=== PATIENT | male | born 1960 | race Caucasian/White ===

== ENCOUNTER 2019-08-08 07:22 | Outpatient (CLI) | payer OTHER, SELFPAY ==
[2019-08-08 08:23] LABS: Basophils # 0.1 10^3/uL (0.0-0.1); Eosinophils # 0.2 10^3/uL (0.0-0.8); Eosinophils % 3.1 %; Hematocrit 43.9 % (42.0-52.0); Hemoglobin 14.2 g/dL (11.7-16.6); Lymphocytes # 2.6 10^3/uL (0.8-4.8); Lymphocytes % 36.3 %; Mean Corpuscular HGB Conc 32.3 g/dL (30.0-36.0); Mean Corpuscular Volume 83.5 fL (80-94); Mean Platelet Volume 9.4 fL (7.4-10.4); Monocytes # 0.7 10^3/uL (0.2-0.9); Monocytes % 9.3 %; Neutrophils # 3.6 10^3/uL (1.8-7.7); Neutrophils % 49.9 %; Nucleated Red Blood Cells % 0 %; Platelet Count 279 10^3/cmm (130-400); Red Blood Count 5.26 10^6/uL (4.1-5.3); Red Cell Distribution Width 13.2 % (12.1-15.1); White Blood Count 7.2 10^3/uL (4.0-10.0)
--- NOTE | 2019-08-08 08:45 | USCV_ITS ---
Tan Garnica Age: 59 Gender: M : 1960 Exam Date: 08/08/2019 07:40 Ordering Phys: Josee Kinney MD ([email or web address]) Technologist: Josselin Lynn Exam Location: [facility] [place] Indication: CHF BP: / HR: 64 Rhythm: Sinus Technical Quality: Adequate MEASUREMENTS (Male / Female) Normal Values 2D ECHO LV Diastolic Diameter PLAX 4.9 cm 4.2 - 5.9 / 3.9 - 5.3 cm LV Systolic Diameter PLAX 3.8 cm LV Chamber Size 4.0 cm IVS Diastolic Thickness 1.6 cm 0.6 - 1.0 / 0.6 - 0.9 cm IVS Systolic Thickness 1.8 cm LVPW Diastolic Thickness 1.4 cm 0.6 - 1.0 / 0.6 - 0.9 cm LVPW Systolic Thickness 1.7 cm RV Chamber Size 2.4 cm LV Ejection Fraction 2D Teich 46.1 % LV Ejection Fraction MOD 2C 45.0 % LV Ejection Fraction 2C AL 46.0 % LA Diameter 4.3 cm LA Width 2.8 cm LA Height 4.4 cm RA Width 3.4 cm RA Height 4.2 cm M-MODE LV Diastolic Diameter MM 3.2 cm 4.2 - 5.9 / 3.9 - 5.3 cm LV Systolic Diameter MM 1.9 cm LV Ejection Fraction MM Teich 70.6 % IVS Diastolic Thickness MM 1.3 cm 0.6 - 1.0 / 0.6 - 0.9 cm IVS Systolic Thickness MM 1.3 cm LVPW Diastolic Thickness MM 1.2 cm 0.6 - 1.0 / 0.6 - 0.9 cm LVPW Systolic Thickness MM 1.6 cm RV Diastolic Diameter MM 1.9 cm Aortic Annulus Diameter 3.8 cm LA Ao Ratio MM 1.1 MV E Point Septal Separation 0.6 cm DOPPLER AV Peak Velocity 109.0 cm/s LVOT Peak Velocity 57.0 cm/s MV Area PHT 4.3 cm squared Mitral E to A Ratio 1.1 MV E' Velocity 11.0 cm/s Mitral E to MV E' Ratio 7.9 Mitral E to LV E' Lateral Ratio 6.5 Mitral E to LV E' Septal Ratio 10.1 TR Peak Velocity 251.3 cm/s TR Peak Gradient 25.3 mmHg TR Mean Velocity 197.4 cm/s TR Mean Gradient 17.2 mmHg TR Velocity Time Integral 96.2 cm TV Peak E Velocity 35.0 cm/s Right Atrial Pressure 3.0 mmHg Pulmonary Artery Systolic Pressu 28.3 mmHg PV Peak Velocity 59.0 cm/s RV Acceleration Time 0.1 s RV Ejection Time 0.4 s RV AcT/ET 0.3 FINDINGS Left Ventricle Normal left ventricular cavity size. Mildly decreased left ventricular systolic function. Left ventricular ejection fraction is estimated at 45 %. Probable mild hypokinesis of basal to mid inferolateral and inferior luke. Normal diastolic function. Right Ventricle Normal right ventricular size and systolic function. Right ventricular systolic pressure 28.3 mmHg. Right Atrium Normal right atrial size. Right atrial pressure estimated at 3 mmHg. Left Atrium Normal left atrial size. Mitral Valve Mildly thickened mitral valve. No mitral valve stenosis. Trace- mild mitral valve regurgitation. Aortic Valve Structurally normal trileaflet aortic valve. No aortic valve stenosis. No aortic valve regurgitation. Tricuspid Valve Tricuspid valve not well visualized. Trace tricuspid valve regurgitation. Pulmonic Valve Pulmonic valve not well visualized. No significant pulmonary valve regurgitation. Pericardium No pericardial effusion. Aorta Aorta not well visualized. CONCLUSIONS 1. Normal left ventricular cavity size. Mildly decreased left ventricular systolic function. Left ventricular ejection fraction is estimated at 45 %. Probable mild hypokinesis of basal to mid inferolateral and inferior luke. Normal diastolic function. 2. Normal right ventricular size and systolic function. 3. Pulmonary artery pressure estimated at 28 mmHg. 4. Trace-mild mitral valve regurgitation. 5. No prior similar studies to compare. Josee Kinney MD (Electronically Signed) Final Date: 08 August 2019 16:22 S
[2019-08-08 08:49] LABS: Alanine Aminotransferase 17 U/L (0-41); Albumin Level 4.1 g/dL (3.5-5.2); Alkaline Phosphatase 64 IU/L (40-130); Anion Gap 14.6 (5-19); Aspartate Amino Transferase 19 U/L (0-40); Blood Urea Nitrogen 9 mg/dL (8-23); Calcium 9.8 mg/dL (8.5-10.5); Carbon Dioxide 24 mmol/L (22-29); Chloride 102 mmol/L (98-107); Cholesterol 127 mg/dL (0-200); Globulin 3.4 g/dL (1.3-4.6); Glomerular Filtration Rate 56.3 mL/min (90-130); Glucose 128 mg/dL (65-115); HDL Cholesterol 41 mg/dL (60-100); LDL Cholesterol Calculated 63 mg/dL (50-129); LDL HDL Ratio 1.54 RATIO (0.00-3.22); Magnesium 2.2 mg/dL (1.7-2.3); NT Pro B Type Natriuretic Pept 129 pg/mL (0-125); Potassium 4.6 mmol/L (3.5-5.1); Sodium 136 mmol/L (136-145); Thyroid Stimulating Hormone 0.57 uIU/mL (0.27-4.20); Total Bilirubin 0.2 mg/dL (0.15-1.2); Total Protein 7.5 g/dL (6.6-8.7); Triglycerides 116 mg/dL (0-150)
[2019-08-08 08:56] LABS: Estmated Average Glucose 154
== END 2019-08-08 07:23 | disposition home or self-care (01) ==
LOC: US 07:27
PROVIDERS: Family Provider Family Medicine; PCP Family Medicine; Visit Provider Internal Medicine Cardiovascular Disease
DX: I50.9 Heart failure, unspecified (principal); I10 Essential (primary) hypertension; I08.1 Rheumatic disorders of both mitral and tricuspid valves
CPT/HCPCS: 36415; 80053; 80061; 83036; 83735; 83880; 84443; 85025; 93306

== ENCOUNTER 2021-04-10 12:26 | Outpatient (CLI) | payer OTHER, SELFPAY ==
--- NOTE | 2021-04-10 12:45 | ECG_ITS ---
[facility] Test Date: 2021-04-10 Pat Name: Tan Garnica Department: Room: Gender: Male Field Manager: : 1960 Requested By: Josee Kinney Order Number: [id number] Jeannette MD: Josee Kinney M.D. Interpretive Statements NAME OF STUDY: TREADMILL STRESS TEST INDICATION: DOT PHYSICIAL, h/o CAD Baseline blood pressure of 98/60 mm Hg, heart rate of 70 beats per minute and oxygen saturation of 94%. EKG showed sinus rhythm with frequent PVC's. Possible old inferior CA. ??? The patient exercised for 3 on a [standard Scot protocol]. Patient attained a maximum heart rate of 138 beats per minute( 87 % of the maximum predicted heart rate) with a blood pressure at the peak exercise of 156/62 mm Hg and oxygen saturation of 95%. The EKG at the peak exercise revealed sinus tachycardia with no significant ST-T wave changes. Artifact . Patient did not have any chest pain with the exercise. During the recovery phase, there were no new changes. Frequent isolated PVC's noted in recovery. ??? Blood pressure at the end of the recovery phase was 147/67 mm Hg with a heart rate of 96 beats per minute and oxugen saturation of 97%. ??? CONCLUSION: 1. Normal EKG response to treadmill exercise. 2. No exercise-induced chest pain. Frequent PVC's at rest and in recovery. 3. Decreased exercise tolerance, attained a maximum of 4.6 METs. 4. Baseline normal blood pressure with normal response to exercise. Exaggerated heart rate response to exercise. Patient exhibited decreased exercise tolerance, exagerrated heart rate response and frequent isolated PVC's during the test. 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 Electronically Signed On 04-16-2021 13:14:42 CDT by Josee Kinney M.D. [id number]
[2021-04-10 12:46] VITALS: BMI 34.5
[2021-04-10 13:11] VITALS: BP 147/67; PULSE 97
== END 2021-04-10 12:27 | disposition home or self-care (01) ==
PROVIDERS: PCP Family Medicine; Visit Provider Internal Medicine Cardiovascular Disease
DX: Z02.4 Encounter for examination for driving license (principal)
CPT/HCPCS: 93017

== ENCOUNTER 2021-05-14 06:41 | Outpatient (CLI) | payer OTHER, SELFPAY ==
--- NOTE | 2021-05-14 07:03 | ECG_ITS ---
[facility] Test Date: 2021-05-14 Pat Name: Tan Garnica Department: Room: Gender: Male Customer Engagement Manager: : 1960 Requested By: Josee Kinney Order Number: [id number] Jeannette MD: Josee Kinney M.D. 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 The electrocardiogram showed normal sinus rhythm, old inferior myocardial infarction. Nonspecific T wave inversion in lead V5 and V6. The Lexiscan was infused over a period of 20 seconds. A total of 0.4 milligrams of Lexiscan was infused. The stress phase was continued for a total of 5 minutes. Heart rate at the end of the stress phase was 90 bpm, oxygen saturation 96% with a blood pressure of 123/78 mmHg. The EKG at the peak infusion revealed sinus rhythm with no significant ST-T wave changes. Sestamibi was injected 20 seconds after the Lexiscan infusion. Blood pressure at the end of the recovery phase was 115/84 mmHg, oxygen saturation 96% with a heart rate of 86 beats per minute. Frequent isolated PVCs and PVC couplets noted during recovery. CONCLUSION: 1. No significant EKG changes with the LexiScan infusion. 2. No LexiScan induced chest pain or cardiac arrhythmia. 3. Normal blood pressure and heart rate response. 4. Sestamibi/sestamibi perfusion scan pending; see separate report. Electronically Signed On 05-20-2021 13:01:03 DOMESTIC TECHNICIAN by Josee Kinney M.D. [id number]
--- NOTE | 2021-05-14 07:04 | NMCV_ITS ---
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 Images obtained in supine and prone position. SPECT RESULTS Technical Quality: Excellent Raw Data Analysis: Normal Image Corrections: No attenuation or motion correction applied Summed Stress Score: 19 Summed Rest Score: 23 Summed Difference Score: 1 PERFUSION FINDINGS Large sized perfusion abnormality of basal to apical inferior, basal to mid inferolateral, basal to mid inferoseptal, apical septal and apical lateral wall on rest images with subtle reversibility in basal inferolateral wall on supine stress images. FUNCTIONAL RESULTS (calculated via Gated SPECT) Stress Image LV EF (%): 49 Stress EDV (mL):145 TID: 0.99 Stress ESV (mL):74 FUNCTIONAL FINDINGS: The left ventricle is normal in size. Transient Ischemia Dilatation of 0.99. The left ventricular ejection fraction is mildly reduced with a value of 49%. There is mild hypokinesis of inferior and septal luke. Increased end-diastolic end-systolic volume. IMPRESSIONS 1. Large sized predominantly fixed perfusion abnormality of basal to apical inferior, basal to mid inferolateral, basal to mid inferoseptal, apical septal and apical lateral luke. 2. 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 3. The left ventricular ejection fraction is mildly reduced with a value of 49%. 4. There is mild hypokinesis of inferior and septal luke. 5. No prior similar studies to compare Josee Kinney MD (Electronically Signed) Final Date: 20 May 2021 12:56 S
[2021-05-14 07:15] VITALS: BMI 33.5
[2021-05-14] MEDS: regadenoson 0.4 Mg/5 ml Syringe IVP (09:24)
[2021-05-14 09:41] VITALS: BP 115/86; PULSE 86
== END 2021-05-14 06:42 | disposition home or self-care (01) ==
LOC: CDL 06:42
PROVIDERS: PCP Family Medicine; Visit Provider Internal Medicine Cardiovascular Disease
DX: R07.9 Chest pain, unspecified (principal); I25.10 Atherosclerotic heart disease of native coronary artery without angina pectoris
CPT/HCPCS: 78452; 93017; A9500; J2785

== ENCOUNTER → 2021-11-12 15:24 | Outpatient (BNVA) | payer OTHER, SELFPAY | PROVIDERS: PCP Family Medicine; Visit Provider Internal Medicine Cardiovascular Disease | DX: I50.9 Heart failure, unspecified (principal); I10 Essential (primary) hypertension; I25.10 Atherosclerotic heart disease of native coronary artery without angina pectoris; I50.22 Chronic systolic (congestive) heart failure; E78.5 Hyperlipidemia, unspecified; R73.09 Other abnormal glucose | CPT/HCPCS: 80053; 80061; 83036; 83721; 84443; 85025 ==

== ENCOUNTER 2022-02-10 08:34 | Outpatient (CLI) | payer OTHER, SELFPAY ==
[2022-02-10 09:34] LABS: Estmated Average Glucose 148; Hemoglobin A1C 6.8 % (4.0-6.0)
== END 2022-02-10 08:35 | disposition home or self-care (01) ==
PROVIDERS: PCP Family Medicine; Visit Provider Internal Medicine Cardiovascular Disease
DX: I25.10 Atherosclerotic heart disease of native coronary artery without angina pectoris (principal); R73.09 Other abnormal glucose
CPT/HCPCS: 36415; 83036